=== PATIENT | female | born 1955 | race Caucasian/White ===

== ENCOUNTER 2018-06-03 06:02 | Day surgery (SDC) | END 2018-06-03 10:40 | disposition home or self-care (01) ==

== ENCOUNTER 2018-08-05 08:42 | Inpatient (IN) | payer OTHER ==
[2018-08-05] VITALS (27 sets, daily range): BP systolic 91–142; BP diastolic 43–99; PULSE 60–82; RESP 17–21; Ht 149.9 cm; Wt 61.2 kg
[~2018-08-05] VITALS: Ht 149.9 cm; Wt 61.2 kg
[~2018-08-05 08:42] MED LIST: AMPICILLIN/SULB 3 GM/NS (PMX) 100 ML IVPB ONE; LIPITOR; SEVOFLURANE 15 MIN ONE; SOD CHLORIDE 0.9% 1,000 ML IV SCH; VITAMINS
[2018-08-05] MEDS ORDERED: OMEG-135 PO (09:32)
[2018-08-05] MEDS ORDERED: ATOR10TA65 PO (09:32)
[2018-08-05] MEDS ORDERED: NEOSTIGMINE 10 MG INJ ONE (09:43)
[2018-08-05] MEDS ORDERED: PROPOFOL 20 ML ONE (09:43)
[2018-08-05] MEDS ORDERED: SUCCINYLCHOLINE CHLORIDE 100 MG/5 ML SYG IV ONE (09:43)
[2018-08-05] MEDS ORDERED: LIDOCAINE 100 MG SYRINGE ONE (09:43)
[2018-08-05] MEDS ORDERED: MIDAZOLAM 1 MG/ML 2 ML INJ ONE (09:43)
[2018-08-05] MEDS ORDERED: GLYCOPYRROLATE 0.4 MG INJ ONE (09:43)
[2018-08-05] MEDS ORDERED: ROCURONIUM 50 MG INJ ONE ×2 (09:43→13:00)
[2018-08-05] MEDS ORDERED: PHENYLephrine (100 MCG/ML) 10ML SYG ONE (09:44)
[2018-08-05] MEDS ORDERED: METOCLOPRAMIDE 10 MG INJ ONE (09:44)
[2018-08-05] MEDS ORDERED: KETOROLAC 30 MG INJ ONE (09:44)
[2018-08-05] MEDS ORDERED: ONDANSETRON 4 MG INJ ONE (09:44)
--- NOTE | 2018-08-05 11:45 | PREAC ---
Date/Time of Note Date/Time of Note DATE: 08/05/18 TIME: 11:34 Anesthesia Eval and Record Evaluation Time Pre-Procedure Interview DATE: 08/05/18 TIME: 11:34 Age 62 Sex female NPO: 8 hrs Preoperative diagnosis Rectal CA Planned procedure Lower anterior resection, possible abdominal, peritoneal resection, anterior layout man repair, possible colostomy, possible ileostomy Past Medical History Past Medical History: Includes Cardio: Dyslipidemia, Other (varicoses LEs) Surgery & Anesthesia Issues No known issue Meds Anticoagulation: No Beta Nettie within 24 hr: Yes Reported Medications Berwind-3 Fatty Acids/Fish Oil (Fish Oil 1,000 mg Capsule) 1 Each Capsule, 1 EACH PO DAILY, CAP 08/05/18 Atorvastatin Calcium (Atorvastatin Calcium) 10 Mg Tablet, 10 MG PO QHS, #30 TAB 08/05/18 Discontinued Reported Medications [Vitamins] No Conflict Check 06/03/18 [Lipitor] No Conflict Check 06/03/18 Current Medications Sodium Chloride 1,000 ml @ 75 mls/hr [id number] IV ; Start 08/05/18 at 08:00; Stop 08/05/18 at 21:19 Meds reviewed: Yes Allergies Coded Allergies: No Known Allergy (Unverified , 08/05/18) Allergies Reviewed: Yes Labs/Studies Labs Reviewed: Reviewed by anesthesiologist test: N/A Studies: ECG, CXR Pre-procedure Exam Last vitals Vital Signs Date Temp Pulse Resp B/P (MAP) Pulse Ox O2 O2 Flow FiO2 Time Delivery Rate 08/05/18 98.1 81 18 142/71 98 Room Air 09:57 (94) Airway: Adequate mouth opening, Adequate thyromental dist Mallampati: Mallampati I Teeth: Abnormal (edent) Lung: Normal Heart: Normal ASA Physical Status ASA physical status: 3 Emergency: None Planned Anesthetic General/MAC: ETT, NG/OG Tube Planned Pain Management Parenteral pain med Pre-operative Attestations Prior to commencing anesthesia and surgery, the patient was re-evaluated, there was verification of: *The patient's identity *The results of appropriate recent lab work and preoperative vital signs *The above evaluation not changing prior to induction *Anesthetic plan, risk benefits, alternative and complications discussed with patient/family; questions answered; patient/family understands, accepts and wishes to proceed. Allergy And Immunology Chief used Morenita Friedman Aug 05, 2018 11:44
[2018-08-05] MEDS ORDERED: hydrALAzine 20 MG INJ IV PRN (12:00)
[2018-08-05] MEDS ORDERED: ALBUTEROL 0.083% (NEB) 2.5 MG/3 ML AMP HHN PRN (12:00)
[2018-08-05] MEDS ORDERED: MEPERIDINE 25 MG INJ IV PRN (12:00)
[2018-08-05] MEDS ORDERED: ONDANSETRON 4 MG INJ IV PRN ×2 (12:00→15:00)
[2018-08-05] MEDS ORDERED: KETOROLAC 30 MG INJ IV PRN (12:00)
[2018-08-05] MEDS ORDERED: OXYCODONE/ACETAMINOPHEN (5/325) TAB PO PRN (12:00)
[2018-08-05] MEDS ORDERED: LABETALOL HCL 20MG INJ IV PRN (12:00)
[2018-08-05] MEDS ORDERED: METOCLOPRAMIDE 10 MG INJ IV PRN (12:00)
[2018-08-05] MEDS ORDERED: morphine (1 MG/ML) 10ML SYRINGE IV PRN (12:00)
[2018-08-05] MEDS ORDERED: HYDROmorphONE 1 MG/5 ML IV SYRINGE IV PRN (12:00)
[2018-08-05] MEDS ORDERED: DIPHENHYDRAMINE 50 MG INJ IV PRN (12:00)
[2018-08-05] MEDS ORDERED: FENTAnyl 50 MCG/ML VIAL IV PRN (12:00)
[2018-08-05] MEDS ORDERED: EPHEDrine 50 MG INJ ONE (12:13)
[2018-08-05] MEDS ORDERED: METOPROLOL 5 MG INJ ONE (12:13)
--- NOTE | 2018-08-05 14:44 | SIPON ---
Date/Time of Note Date/Time of Note DATE: 08/05/18 TIME: 14:43 Operative Report Preoperative Diagnosis Rectal cancer Postoperative Diagnosis Same Operation/Procedure Performed Low anterior resection with mobilization of the splenic flexure and rigid sigmoidoscopy Surgeon see signature line assistant district attorney Dr Rodas Anesthesia: general Estimated blood loss: 150 - 200 ml's Transfusion Required none Specimen Rectosigmoid colon specimen Grafts/Implants none Complications none ARINA SOLANO MD Aug 05, 2018 14:44
[2018-08-05] MEDS ORDERED: ACETAMINOPHEN 1000MG/100ML IV 100 ML IVPB PRN (15:00)
--- NOTE | 2018-08-05 15:02 | OPR ---
DATE OF OPERATION: 08/05/2018 PREOPERATIVE DIAGNOSIS: Rectal cancer. POSTOPERATIVE DIAGNOSIS: Rectal cancer. OPERATIONS PERFORMED: 1. Exploratory laparotomy and low anterior resection. 2. Mobilization of the splenic flexure. 3. Rigid sigmoidoscopy. INDICATIONS FOR PROCEDURE: The patient is an unfortunate 62-year-old female who presented with recta l bleeding. She underwent colonoscopy and was found to have a large rectal cancer at approximately 1 2 cm from the anal verge. Due to its location, she was not a candidate for neoadjuvant chemotherapy and radiation. She was counseled as to the benefit of surgery. She consented and was scheduled for surgery. DESCRIPTION OF PROCEDURE: The patient was brought to the operating theater, placed under general end otracheal tube anesthesia. Marin catheter was placed and she was then placed into the lithotomy posi tion. The abdomen was prepped and draped in the usual sterile fashion. Generous midline incision wa s made from a point approximately 5 cm above the umbilicus, around the umbilicus down to the symphysi s pubis. Subcutaneous tissue was dissected with cautery down to the anterior rectus sheath. The wendy ea alba was incised and the abdominal wall fascia was opened to allow entry into the abdomen. The fa scia was then incised to the length of the skin incision. The Bookwalter retractor was placed. Exce llent exposure was obtained. Initial inspection of the abdominal cavity did not reveal evidence of p eritoneal carcinomatosis or solid organ metastases to the liver or other organs. The Bookwalter retr actor was then placed and excellent exposure was obtained. The tumor was palpated low within the pel vis. The left colon was then mobilized by incising the white line of Toldt. A suitable point of tra nsection of the rectum proximal to the tumor was identified, cleared of its mesentery and the bowel w as transected with the LAURA stapler. Dissection in the mesorectal space then took place with combinat ion of cautery and the LigaSure device. The left and right ureters were identified and kept out of h arm's way. The dissection continued until a point approximately 3 or 4 cm below the palpable tumor a nd the intervening mesentery was transected with the LigaSure device with full mobilization of the tu mor and margin around the tumor, the rectum was then transected with the contour stapler. Specimen w as removed, oriented and sent for gross analysis of margins which were performed by attending patholo gist, Dr. Macedo. Margins were widely clear. The pelvis was irrigated. Minimal bleeding was contro lled with cautery. Preparation for reanastomosis then took place. The descending and sigmoid colon were further mobilized. The proximal staple line was then transected with cautery and a #21 anvil wa s placed into the colon after first placing a 2-0 Prolene pursestring suture. The anvil was secured in place in the standard fashion. Dr. Castaneda then went down below while Dr. Rodas as stated above, a n anastomosis was created using the #29 EEA stapler. At this point, the proximal and distal donuts o f colon tissue were inspected and found to be intact. The pelvis was then filled with warm saline an d rigid sigmoidoscopy was performed. There was no evidence of leak upon insufflation and the staple line appeared viable. The rigid sigmoidoscope was then removed and the abdomen was irrigated. Decis ion was made to place a #10 flat Austin-Manzano drain in the prerectal space. This was done in standa rd fashion, brought through the right lower abdomen and secured in place with 2-0 nylon in the standa rd fashion. At this point, lap, sponge and instrument counts were correct. The abdomen was then rosmery sed with #1 looped PDS sutures and the skin incision was irrigated and reapproximated with skin stapl es. At the conclusion of the operation, the scrub nurse requested an x-ray due to the fact that she had question about a possible needle. X-ray was performed. There was no evidence of a needle identi fied and no other foreign bodies except for the JESSICA drain. Sterile dressing was then applied. The pa tient tolerated the procedure well. The total blood loss was approximately 200 mL. There were no co mplications and the patient was transported in stable condition to the recovery room. Dictated By: ARINA KENNEY/SKY Conf#: [id number] DID#: [id number]
[2018-08-05] MEDS: morphine 1 MG/ML 30 ML (PCA) IV SCH (15:14)
--- NOTE | 2018-08-05 17:23 | PAC ---
Date/Time of Note Date/Time of Note DATE: 08/05/18 TIME: 17:22 Post-Anesthesia Notes Post-Anesthesia Note Last documented vital signs Vital Signs Date Temp Pulse Resp B/P (MAP) Pulse Ox O2 O2 Flow FiO2 Time Delivery Rate 08/05/18 68 19 116/52 100 Nasal 2.0 16:37 (73) Cannula 08/05/18 99.3 15:03 Activity: WNL Respiratory function: WNL Cardiovascular function: WNL Mental status: Baseline Pain reasonably controlled: Yes Hydration appropriate: Yes Nausea/Vomiting absent: Yes Comments hr 68 BP 116/52 Sat 100 on 2NC RR 19 Patient doing well, ready for floor. Morenita Friedman Aug 05, 2018 17:23
[2018-08-05] MEDS: D5W-0.45 NACL + KCL 20 MEQ 1,000 ML IV SCH ×2 (18:09→22:44)
[2018-08-06] VITALS: BP 97/50; PULSE 79; RESP 18
--- NOTE | 2018-08-06 01:57 | HP ---
DATE OF ADMISSION: 08/05/2018 CHIEF COMPLAINT AND HISTORY OF PRESENT ILLNESS: The patient is a 62-year-old female with no signific ant past medical history, underwent elective colonoscopy by Dr. Morelos and was found to have a large tumor in the sigmoid colon at 15 cm from the anus, also was noted to have hemorrhoids. Biopsy subse quently came back positive for invasive adenocarcinoma, moderately differentiated. The patient was r eferred to Dr. Solano. The patient was brought into hospital today and underwent an exploratory lapar otomy and low anterior resection. The patient postoperatively had significant pain and is admitted f or further evaluation and management. NG tube has been placed postoperatively and the patient will b e kept n.p.o. The patient denies any chest pain. No reported leg edema. No reported resting leg pa in. No reported weakness or numbness, tingling in any extremity. The patient remains awake, alert a nd responsive. REVIEW OF SYSTEMS: Other than postoperative pain, rest of review of systems unremarkable. PAST MEDICAL HISTORY: As stated above. PAST SURGICAL HISTORY: The patient is status post hysterectomy. SOCIAL HISTORY: No smoking, no alcohol. ALLERGIES: NONE. FAMILY HISTORY: The patient's brother has rectal cancer and also another brother had oral cancer, mo ther with breast cancer. PHYSICAL EXAMINATION: GENERAL: Revealed the patient to be awake, alert, fairly oriented. VITAL SIGNS: Temperature 98, pulse 80, respiration 20, blood pressure 130/60, O2 saturation 95% on 2 liters cannula. HEENT: No eye discharge or redness. Conjunctivae and lids are normal. Nose and ears are normal. NECK: No mass. CHEST: Fairly clear. CARDIOVASCULAR: S1, S2 are normal. No murmur. ABDOMEN: The patient is status post surgery. EXTREMITIES: No leg edema. Pedal pulses are palpable. SKIN: Without acute rashes. NEUROLOGIC: The patient is awake, alert, fairly oriented with no gross focal deficit. IMPRESSION: Rectal cancer status post exploratory laparotomy and low anterior resection. PLAN: The patient will be admitted on med/surg. The patient will be kept n.p.o. and have NG to low suction. The patient will be started on IV fluids, IV Zofran for nausea, vomiting, IV morphine for p ain. The patient will have SCD for DVT prophylaxis. We will have followup labs tomorrow including C BC, BMP, magnesium and phosphorus. Plan of care was discussed with patient's family. The patient is hemodynamically stable. Dictated By: DOTTIE VELÁSQUEZ/SKY Conf#: [id number] DID#: [id number] CC: ARINA SOLANO MD;*EndCC*
[2018-08-06 05:33] VITALS: BP 104/53; PULSE 76; RESP 17
[2018-08-06] MEDS: D5W-0.45 NACL + KCL 20 MEQ 1,000 ML IV SCH ×3 (06:09→18:15)
[2018-08-06] MEDS: morphine 1 MG/ML 30 ML (PCA) IV SCH (07:04)
[2018-08-06] MEDS ORDERED: VITAMIN A & D 5 GM OINT PACKET TOP ONE (07:43)
[2018-08-06 07:45] VITALS: BP 101/51; PULSE 79; RESP 18
--- NOTE | 2018-08-06 10:52 | PN ---
Date/Time of Note Date/Time of Note DATE: 08/06/18 TIME: 10:52 Assessment/Plan VTE Prophylaxis Risk score (from Ns)>0 risk: 2 SCD applied (from Nsg): Yes Lines/Catheters IV Catheter Type (from Nrs): Peripheral IV Urinary Cath still in place: Yes Reason Cath still needed: urinary retention Assessment/Plan Assessment/Plan Rectal cancer status post exploratory laparotomy and low anterior resection. Result Diagram: 08/06/1844 Results 24hrs Laboratory Tests Test 08/06/18 07:10 08/06/18 09:44 Lab Scanned Report REFERENCE LAB White Blood Count 8.4 Red Blood Count 3.61 L Hemoglobin 10.4 L Hematocrit 32.2 L Mean Corpuscular Volume 89.2 Mean Corpuscular Hemoglobin 28.8 L Mean Corpuscular Hemoglobin Concent 32.3 Red Cell Distribution Width 13.0 Platelet Count 247 Mean Platelet Volume 10.2 Immature Granulocytes % 0.400 Neutrophils % 56.7 Lymphocytes % 31.3 Monocytes % 10.6 Eosinophils % 0.6 Basophils % 0.4 Nucleated Red Blood Cells % 0.0 Immature Granulocytes # 0.030 Neutrophils # 4.8 Lymphocytes # 2.6 Monocytes # 0.9 Eosinophils # 0.1 Basophils # 0.0 Nucleated Red Blood Cells # 0.0 Exam/Review of Systems Exam Vitals Vital Signs Date Temp Pulse Resp B/P (MAP) Pulse Ox O2 O2 Flow FiO2 Time Delivery Rate 08/06/18 99.7 79 18 101/51 99 Nasal 07:45 (68) Cannula 08/06/18 2.0 05:33 Intake and Output 08/05/18 08/05/18 08/06/18 1515:00 23:00 07:00 IntakeIntake Total 1400 ml 100 ml 1050 ml OutputOutput Total 650 ml 890 ml 820 ml BalanceBalance 750 ml -790 ml 230 ml Results Results 24hrs Laboratory Tests Test 08/06/18 07:10 08/06/18 09:44 Lab Scanned Report REFERENCE LAB White Blood Count 8.4 Red Blood Count 3.61 L Hemoglobin 10.4 L Hematocrit 32.2 L Mean Corpuscular Volume 89.2 Mean Corpuscular Hemoglobin 28.8 L Mean Corpuscular Hemoglobin Concent 32.3 Red Cell Distribution Width 13.0 Platelet Count 247 Mean Platelet Volume 10.2 Immature Granulocytes % 0.400 Neutrophils % 56.7 Lymphocytes % 31.3 Monocytes % 10.6 Eosinophils % 0.6 Basophils % 0.4 Nucleated Red Blood Cells % 0.0 Immature Granulocytes # 0.030 Neutrophils # 4.8 Lymphocytes # 2.6 Monocytes # 0.9 Eosinophils # 0.1 Basophils # 0.0 Nucleated Red Blood Cells # 0.0 Medications Medication Current Medications Ondansetron HCl (Zofran Inj) 4 mg Q6H PRN IV NAUSEA AND/OR VOMITING; Start 08/05/18 at 15:00 Morphine Sulfate (morphine) 2 MG DOSE 15 ... Q4PCA IV Last administered on 08/06/18at 07:04; Admin Dose 30 MG; Start 08/05/18 at 15:00 Potassium Chloride/Dextrose/ Sod Cl 1,000 ml @ 125 mls/hr Q8H IV Last administered on 08/06/18at 06:09; Admin Dose 125 MLS/HR; Start 08/05/18 at 14:44 Acetaminophen 100 ml @ 400 mls/hr Q6H PRN IVPB PAIN Last administered on 08/05/18at 18:08; Admin Dose 400 MLS/HR; Start 08/05/18 at 15:00; Stop 08/06/18 at 14:59 Piperacillin Sod/ Tazobactam Sod 100 ml @ 200 mls/hr Q6 IVPB ; Start 08/06/18 at 11:00 SHENA GARCIA Aug 06, 2018 10:52
[2018-08-06] MEDS: PIPER-TAZO 3.375 GM IV (PMX) 100 ML IVPB SCH ×3 (11:38→23:15)
[2018-08-06 15:05] VITALS: BP 105/51; PULSE 74; RESP 18
[2018-08-06 20:10] VITALS: BP 115/58; PULSE 87; RESP 18
--- NOTE | 2018-08-06 20:40 | PN ---
DATE: 08/06/2018 Postop day #1 status post laparotomy, rectosigmoid resection, and low anterior resection and anastomo sis. SUBJECTIVE: No new events. No specific complaint. The pain has been under control with morphine PC A. OBJECTIVE: GENERAL: Awake, alert, oriented. VITAL SIGNS: Temperature maximum today 99.7, heart rate 79 at maximum, respiration 18, blood pressur e 105/51, saturation 93% and also 98% in two occasions on 2 liters of nasal cannula. HEART: Regular. LUNGS: Clear. Decreased breathing sound at bases. ABDOMEN: Not distended, relatively soft. Bowel sounds hypoactive. EXTREMITIES: Legs no calf tenderness. No pitting edema. SCDs in place. NG tube is in place and connected to intermittent suction draining bilious fluid. Lo wer extremity SCDs in place. Also, patient has a Marin which in past 12 hours has drained 700 mL of urine. LABORATORIES: PT and PTT within normal limits. Chemistry: Sodium, potassium, BUN, creatinine amanuel l. Hematology: WBC 8400 with 56% segmented. Hemoglobin 10.4, hematocrit 32.2. ASSESSMENT: Postop day #1. The patient as a whole is stable. PLAN: 1. Continue NG tube. 2. Continue Marin catheter. 3. Continue STACK MATCHER. 4. Encourage incentive spirometry. 5. Keep SCDs in place. 6. Get the patient out of bed and be in a chair if possible today and if not, then tomorrow. To hav e her walk around. We will continue to monitor the patient's intake and output. Blood tests tomorro w and the days to follow. Also, antibiotic was added to the patient's medication list. Dictated By: JAS EDGAR MD PS/NTS Conf#: [id number] DID#: [id number] CC: ARINA SOLANO MD;*EndCC*
--- NOTE | 2018-08-06 22:03 | CONS ---
DATE OF ADMISSION: 08/05/2018 DATE OF CONSULTATION: 08/06/2018 REASON FOR EVALUATION: Colon cancer. HISTORY OF PRESENT ILLNESS: This is a 62-year-old female with no significant past medical h istory other than prediabetes, admitted to [facility] after being diagnosed with co lorectal carcinoma 12 to 15 cm from anal verge. Colonoscopy proved colorectal mass and biopsy adenoc arcinoma. The patient underwent surgery, left anterior resection, by Dr. Naveen Solano with end-to-en d anastomosis. Currently doing well, recovering from surgery. On postoperative day 1, no pain, no b leeding, no hematemesis, no melena. NG tube intact. No chest pain, no shortness of breath, no heada ches, no blurred vision. PAST MEDICAL HISTORY: Positive only for prediabetes. SOCIAL HISTORY: Does not smoke. Does not drink. . Has 3 sons, 1 daughter. FAMILY HISTORY: Positive for cancer. Mother from stomach cancer. Brother had rectal cancer, p ost surgery, doing well at this time. MEDICATIONS: Per EMR. LABORATORY DATA: Per EMR. PHYSICAL EXAMINATION: VITAL SIGNS: Temperature 97, respiration of 18, pulse of 82, BP 125/75. LYMPH NODES: No supraclavicular nodes. No axillary nodes. LUNGS: Clear. HEART: Normal S1, S2. ABDOMEN: Soft. Operative wounds clean. NG tube in place. ASSESSMENT AND PLAN: 1. This is a 62-year-old female with diagnosis of colorectal carcinoma above the peritoneal reflection adenocarcinoma. 2. The patient underwent surgical resection, anterior resection with end-to-end anastomosis, Dr. Ramirez is. 3. For now, postoperative care. 4. Continue pain management; anti-nausea medications; fluid, electrolyte balance. 5. Keep hemoglobin above 9, hematocrit above 27. 6. Later, wait for pathology pending at this time. 7. Later, oncological treatment as outpatient for staging, grading. 8. Imaging studies: CT chest, abdomen and pelvis will be ordered to evaluate the extent of the dise ase and to rule out metastatic disease. Dictated By: TRUE VILLALBA/SKY Conf#: [id number] DID#: [id number] CC: NAVEEN SOLANO MD;*EndCC*
[2018-08-07 02:20] VITALS: BP 130/61; PULSE 86; RESP 18
[2018-08-07] MEDS: PIPER-TAZO 3.375 GM IV (PMX) 100 ML IVPB SCH ×4 (05:28→23:43)
[2018-08-07] MEDS: D5W-0.45 NACL + KCL 20 MEQ 1,000 ML IV SCH ×4 (05:31→22:44)
[2018-08-07] MEDS: morphine 1 MG/ML 30 ML (PCA) IV SCH (05:45)
[2018-08-07 07:45] VITALS: BP 107/58; PULSE 65; RESP 17
--- NOTE | 2018-08-07 11:50 | PN ---
Date/Time of Note Date/Time of Note DATE: 08/07/18 TIME: 11:49 Assessment/Plan VTE Prophylaxis Risk score (from Ns)>0 risk: 7 SCD applied (from Ns): Yes Pharmacological prophylaxis: LMWH Lines/Catheters IV Catheter Type (from [facility]): Peripheral IV Urinary Cath still in place: Yes Reason Cath still needed: skin wounds contaminated by urine Assessment/Plan Hospital Course 1) Rectal cancer status post exploratory laparotomy and low anterior resection. - continue post operative care - monitor clinically Result Diagram: 08/07/18 0824 08/07/18 0824 Results 24hrs Laboratory Tests Test 08/07/18 08:24 White Blood Count 9.1 Red Blood Count 3.80 L Hemoglobin 10.8 L Hematocrit 33.9 L Mean Corpuscular Volume 89.2 Mean Corpuscular Hemoglobin 28.4 L Mean Corpuscular Hemoglobin Concent 31.9 L Red Cell Distribution Width 12.7 Platelet Count 245 Mean Platelet Volume 9.7 Immature Granulocytes % 0.200 Neutrophils % 61.4 Lymphocytes % 25.9 Monocytes % 11.0 Eosinophils % 1.1 Basophils % 0.4 Nucleated Red Blood Cells % 0.0 Immature Granulocytes # 0.020 Neutrophils # 5.6 Lymphocytes # 2.3 Monocytes # 1.0 H Eosinophils # 0.1 Basophils # 0.0 Nucleated Red Blood Cells # 0.0 Prothrombin Time 14.6 Prothrombin Time Ratio 1.1 INR International Normalized Ratio 1.13 Activated Partial Thromboplast Time 29.7 Sodium Level 134 L Potassium Level 4.8 Chloride Level 101 Carbon Dioxide Level 31 Anion Gap 2 L Blood Urea Nitrogen 6 L Creatinine 0.78 Est Glomerular Filtrat Rate mL/min > 60 Glucose Level 123 Calcium Level 8.4 Phosphorus Level 3.1 Magnesium Level 1.8 Subjective 24 Hr Interval Summary Free Text/Dictation Patient still have a fair amount of abdominal pain Exam/Review of Systems Exam Vitals Vital Signs Date Temp Pulse Resp B/P (MAP) Pulse Ox O2 O2 Flow FiO2 Time Delivery Rate 08/07/18 98.9 65 17 107/58 94 07:45 (74) 08/06/18 Nasal 2.0 20:00 Cannula Intake and Output 08/06/18 08/06/18 08/07/18 1515:00 23:00 07:00 IntakeIntake Total 100 ml 1100 ml 1200 ml OutputOutput Total 600 ml 1240 ml BalanceBalance 100 ml 500 ml -40 ml Constitutional: well developed Head: normocephalic, atraumatic Neck: supple Respiratory: diminished breath sounds Cardiovascular: regular rate and rhythm Gastrointestinal: soft, non-tender Extremities: normal pulses Results Results 24hrs Laboratory Tests Test 08/07/18 08:24 White Blood Count 9.1 Red Blood Count 3.80 L Hemoglobin 10.8 L Hematocrit 33.9 L Mean Corpuscular Volume 89.2 Mean Corpuscular Hemoglobin 28.4 L Mean Corpuscular Hemoglobin Concent 31.9 L Red Cell Distribution Width 12.7 Platelet Count 245 Mean Platelet Volume 9.7 Immature Granulocytes % 0.200 Neutrophils % 61.4 Lymphocytes % 25.9 Monocytes % 11.0 Eosinophils % 1.1 Basophils % 0.4 Nucleated Red Blood Cells % 0.0 Immature Granulocytes # 0.020 Neutrophils # 5.6 Lymphocytes # 2.3 Monocytes # 1.0 H Eosinophils # 0.1 Basophils # 0.0 Nucleated Red Blood Cells # 0.0 Prothrombin Time 14.6 Prothrombin Time Ratio 1.1 INR International Normalized Ratio 1.13 Activated Partial Thromboplast Time 29.7 Sodium Level 134 L Potassium Level 4.8 Chloride Level 101 Carbon Dioxide Level 31 Anion Gap 2 L Blood Urea Nitrogen 6 L Creatinine 0.78 Est Glomerular Filtrat Rate mL/min > 60 Glucose Level 123 Calcium Level 8.4 Phosphorus Level 3.1 Magnesium Level 1.8 Medications Medication Current Medications Ondansetron HCl (Zofran Inj) 4 mg Q6H PRN IV NAUSEA AND/OR VOMITING; Start 08/05/18 at 15:00 Morphine Sulfate (morphine) 2 MG DOSE 15 ... Q4PCA IV Last administered on 08/07/18at 05:45; Admin Dose 30 MG; Start 08/05/18 at 15:00 Potassium Chloride/Dextrose/ Sod Cl 1,000 ml @ 125 mls/hr Q8H IV Last administered on 08/07/18at 05:31; Admin Dose 125 MLS/HR; Start 08/05/18 at 14:44 Piperacillin Sod/ Tazobactam Sod 100 ml @ 200 mls/hr Q6 IVPB Last administered on 08/07/18at 05:28; Admin Dose 200 MLS/HR; Start 08/06/18 at 11:00 JOSÉ BADILLO Aug 07, 2018 11:50
[2018-08-07 15:33] VITALS: BP 134/60; PULSE 86; RESP 19
[2018-08-07 20:14] VITALS: BP 124/64; PULSE 82; RESP 20
[2018-08-07 23:52] VITALS: BP 130/64; PULSE 86; RESP 20
[2018-08-08] MEDS: D5W-0.45 NACL + KCL 20 MEQ 1,000 ML IV SCH ×3 (03:21→23:12)
[2018-08-08 04:30] VITALS: BP 127/62; PULSE 78; RESP 17
[2018-08-08] MEDS: PIPER-TAZO 3.375 GM IV (PMX) 100 ML IVPB SCH ×4 (06:11→23:12)
[2018-08-08 07:41] VITALS: BP 123/61; PULSE 73; RESP 19
--- NOTE | 2018-08-08 11:53 | PN ---
Date/Time of Note Date/Time of Note DATE: 08/08/18 TIME: 11:53 Assessment/Plan VTE Prophylaxis Risk score (from Ns)>0 risk: 7 SCD applied (from Ns): Yes Pharmacological prophylaxis: LMWH Lines/Catheters IV Catheter Type (from [facility]): Peripheral IV Urinary Cath still in place: Yes Reason Cath still needed: skin wounds contaminated by urine Assessment/Plan Hospital Course 1) Rectal cancer status post exploratory laparotomy and low anterior resection. - continue post operative care - monitor clinically Result Diagram: 08/08/18 0836 08/08/18 0836 Results 24hrs Laboratory Tests Test 08/08/18 08:35 08/08/18 08:36 Prothrombin Time 14.1 Prothrombin Time Ratio 1.1 INR International Normalized Ratio 1.08 Activated Partial Thromboplast Time 28.6 White Blood Count 6.8 # Red Blood Count 4.02 L Hemoglobin 11.4 L Hematocrit 35.0 L Mean Corpuscular Volume 87.1 Mean Corpuscular Hemoglobin 28.4 L Mean Corpuscular Hemoglobin Concent 32.6 Red Cell Distribution Width 12.4 Platelet Count 266 Mean Platelet Volume 9.6 Immature Granulocytes % 0.300 Neutrophils % 59.6 Lymphocytes % 26.3 Monocytes % 9.3 Eosinophils % 3.8 Basophils % 0.7 Nucleated Red Blood Cells % 0.0 Immature Granulocytes # 0.020 Neutrophils # 4.1 Lymphocytes # 1.8 Monocytes # 0.6 Eosinophils # 0.3 Basophils # 0.1 Nucleated Red Blood Cells # 0.0 Sodium Level 138 Potassium Level 4.0 Chloride Level 105 Carbon Dioxide Level 29 Anion Gap 4 L Blood Urea Nitrogen 4 L Creatinine 0.59 Est Glomerular Filtrat Rate mL/min > 60 Glucose Level 139 Calcium Level 8.5 Phosphorus Level 2.7 Magnesium Level 1.9 Subjective 24 Hr Interval Summary Free Text/Dictation Patient still has abdominal pain, was out of bed yesterday but not today Exam/Review of Systems Exam Vitals Vital Signs Date Temp Pulse Resp B/P (MAP) Pulse Ox O2 O2 Flow FiO2 Time Delivery Rate 08/08/18 16 09:00 08/08/18 98.8 73 123/61 97 07:41 (81) 08/08/18 Room Air 04:30 08/06/18 2.0 20:00 Intake and Output 08/07/18 08/07/18 08/08/18 1515:00 23:00 07:00 IntakeIntake Total 100 ml 1100 ml 1225 ml OutputOutput Total 1600 ml 490 ml 1590 ml BalanceBalance -1500 ml 610 ml -365 ml Constitutional: well developed Head: normocephalic, atraumatic Neck: supple Respiratory: diminished breath sounds Cardiovascular: regular rate and rhythm Gastrointestinal: soft, non-tender Extremities: normal pulses Results Results 24hrs Laboratory Tests Test 08/08/18 08:35 08/08/18 08:36 Prothrombin Time 14.1 Prothrombin Time Ratio 1.1 INR International Normalized Ratio 1.08 Activated Partial Thromboplast Time 28.6 White Blood Count 6.8 # Red Blood Count 4.02 L Hemoglobin 11.4 L Hematocrit 35.0 L Mean Corpuscular Volume 87.1 Mean Corpuscular Hemoglobin 28.4 L Mean Corpuscular Hemoglobin Concent 32.6 Red Cell Distribution Width 12.4 Platelet Count 266 Mean Platelet Volume 9.6 Immature Granulocytes % 0.300 Neutrophils % 59.6 Lymphocytes % 26.3 Monocytes % 9.3 Eosinophils % 3.8 Basophils % 0.7 Nucleated Red Blood Cells % 0.0 Immature Granulocytes # 0.020 Neutrophils # 4.1 Lymphocytes # 1.8 Monocytes # 0.6 Eosinophils # 0.3 Basophils # 0.1 Nucleated Red Blood Cells # 0.0 Sodium Level 138 Potassium Level 4.0 Chloride Level 105 Carbon Dioxide Level 29 Anion Gap 4 L Blood Urea Nitrogen 4 L Creatinine 0.59 Est Glomerular Filtrat Rate mL/min > 60 Glucose Level 139 Calcium Level 8.5 Phosphorus Level 2.7 Magnesium Level 1.9 Medications Medication Current Medications Ondansetron HCl (Zofran Inj) 4 mg Q6H PRN IV NAUSEA AND/OR VOMITING; Start 08/05/18 at 15:00 Morphine Sulfate (morphine) 2 MG DOSE 15 ... Q4PCA IV Last administered on 08/07/18at 05:45; Admin Dose 30 MG; Start 08/05/18 at 15:00 Potassium Chloride/Dextrose/ Sod Cl 1,000 ml @ 125 mls/hr Q8H IV Last a dministered on 08/08/18at 03:21; Admin Dose 125 MLS/HR; Start 08/05/18 at 14:44 Piperacillin Sod/ Tazobactam Sod 100 ml @ 200 mls/hr Q6 IVPB Last administered on 08/08/18at 06:11; Admin Dose 200 MLS/HR; Start 08/06/18 at 11:00 JOSÉ BADILLO Aug 08, 2018 11:53
[2018-08-08 14:14] VITALS: BP 141/63; PULSE 77; RESP 18
[2018-08-08] MEDS ORDERED: VITAMIN A & D 5 GM OINT PACKET TOP ONE (14:17)
[2018-08-08 19:25] VITALS: BP 129/61; PULSE 70; RESP 18
[2018-08-09 01:23] VITALS: BP 115/57; PULSE 75; RESP 16
[2018-08-09] MEDS: PIPER-TAZO 3.375 GM IV (PMX) 100 ML IVPB SCH ×3 (05:16→18:11)
[2018-08-09] MEDS: morphine 1 MG/ML 30 ML (PCA) IV SCH (06:02)
[2018-08-09] MEDS: D5W-0.45 NACL + KCL 20 MEQ 1,000 ML IV SCH ×3 (06:44→18:11)
[2018-08-09 08:10] VITALS: BP 130/70; PULSE 70; RESP 18
[2018-08-09 14:08] VITALS: BP 124/72; PULSE 76; RESP 18
--- NOTE | 2018-08-09 15:28 | PN ---
Date/Time of Note Date/Time of Note DATE: 08/09/18 TIME: 15:27 Assessment/Plan VTE Prophylaxis Risk score (from Nsg)>0 risk: 4 SCD applied (from Nsg): Yes Lines/Catheters IV Catheter Type (from Nrsg): Peripheral IV Urinary Cath still in place: Yes Reason Cath still needed: urinary retention Assessment/Plan Assessment/Plan Rectal cancer status post exploratory laparotomy and low anterior resection. - continue post operative care - monitor clinically Result Diagram: 08/08/1883508/08/1836 Exam/Review of Systems Exam Vitals Vital Signs Date Temp Pulse Resp B/P (MAP) Pulse Ox O2 O2 Flow FiO2 Time Delivery Rate 08/09/18 97.3 76 18 124/72 97 Room Air 14:08 (89) 08/06/18 2.0 20:00 Intake and Output 08/08/18 08/08/18 08/09/18 1414:59 22:59 06:59 IntakeIntake Total 200 ml 950 ml 1150 ml OutputOutput Total 2330 ml 815 ml 860 ml BalanceBalance -2130 ml 135 ml 290 ml Medications Medication Current Medications Ondansetron HCl (Zofran Inj) 4 mg Q6H PRN IV NAUSEA AND/OR VOMITING; Start 08/05/18 at 15:00 Morphine Sulfate (morphine) 2 MG DOSE 15 ... Q4PCA IV Last administered on 08/09/18at 06:02; Admin Dose 30 MG; Start 08/05/18 at 15:00 Potassium Chloride/Dextrose/ Sod Cl 1,000 ml @ 125 mls/hr Q8H IV Last admin istered on 08/09/18at 10:26; Admin Dose 125 MLS/HR; Start 08/05/18 at 14:44 Piperacillin Sod/ Tazobactam Sod 100 ml @ 200 mls/hr Q6 IVPB Last administered on 08/09/18at 12:10; Admin Dose 200 MLS/HR; Start 08/06/18 at 11:00 SHENA GARCIA Aug 09, 2018 15:28
--- NOTE | 2018-08-09 15:46 | PN ---
DATE: 08/05/2018 Postop day #4 status post laparotomy, low anterior resection of the rectosigmoid cancer. SUBJECTIVE: No specific complaint. Has not had any bowel movement or neither has passed any gas. OBJECTIVE: GENERAL: Awake, alert, oriented x3. VITAL SIGNS: Temperature maximum 99.1, heart rate 70, respiration 18, blood pressure 130/72, saturat ion 96%. No bowel movement, no flatus. LABORATORY DATA: NG tube drainage has been 250 mL in past 24 hours. Urine output past 24 hours 3200 mL. The patient has NG tube and has a Marin catheter. Has been out of bed, but not walking that mu ch yet. HEART: Regular. LUNGS: Clear. ABDOMEN: Soft. Wounds clean. Dressing changed. EXTREMITIES: Legs no calf tenderness. No pitting edema. SCDs on the legs. ASSESSMENT: The patient with cancer of rectosigmoid. Postop day #4, is quite stable. Bowel sounds actually is 3+/4+. Expecting at least passing gas pretty soon. PLAN: Continue current care. Keep the NG tube. Keep the Marin, make sure the patient gets out of b ed and walks around on the floor. Hopefully, by tomorrow, we can discontinue the Marin and the NG tu be. Dictated By: JAS EDGAR MD PS/NTS Conf#: [id number] DID#: [id number] CC: ARINA SOLANO MD;*EndCC*
[2018-08-09 20:17] VITALS: BP 129/76; PULSE 80; RESP 18
[2018-08-10] MEDS: PIPER-TAZO 3.375 GM IV (PMX) 100 ML IVPB SCH ×4 (00:29→17:29)
[2018-08-10 02:03] VITALS: BP 119/70; PULSE 72; RESP 18
[2018-08-10] MEDS: D5W-0.45 NACL + KCL 20 MEQ 1,000 ML IV SCH ×3 (03:45→14:11)
[2018-08-10 08:02] VITALS: BP 132/71; PULSE 74; RESP 18
[2018-08-10] MEDS ORDERED: morphine 2 MG INJ IV PRN (14:00)
[2018-08-10 15:03] VITALS: BP 128/59; PULSE 73; RESP 18
[2018-08-10 19:56] VITALS: BP 141/67; PULSE 76; RESP 18
--- NOTE | 2018-08-10 23:08 | PN ---
Date/Time of Note Date/Time of Note DATE: 08/10/18 TIME: 23:08 Assessment/Plan VTE Prophylaxis Risk score (from Nsg)>0 risk: 4 SCD applied (from Nsg): Yes Pharmacological prophylaxis: other Lines/Catheters IV Catheter Type (from Nrsg): Peripheral IV Urinary Cath still in place: Yes Assessment/Plan Result Diagram: 08/08/18 0836 08/08/18 0836 Exam/Review of Systems Exam Vitals Vital Signs Date Temp Pulse Resp B/P (MAP) Pulse Ox O2 O2 Flow FiO2 Time Delivery Rate 08/10/18 98.9 76 18 141/67 93 19:56 (91) 08/10/18 Room Air 15:03 08/06/18 2.0 20:00 Intake and Output 08/09/18 08/09/18 08/10/18 1414:59 22:59 06:59 IntakeIntake Total 700 ml 925 ml 1200 ml OutputOutput Total 35 ml 1100 ml 70 ml BalanceBalance 665 ml -175 ml 1130 ml Medications Medication Current Medications Ondansetron HCl (Zofran Inj) 4 mg Q6H PRN IV NAUSEA AND/OR VOMITING; Start 08/05/18 at 15:00 Potassium Chloride/Dextrose/ Sod Cl 1,000 ml @ 125 mls/hr Q8H IV Last administered on 08/10/18at 14:11; Admin Dose 125 MLS/HR; Start 08/05/18 at 14:44 Piperacillin Sod/ Tazobactam Sod 100 ml @ 200 mls/hr Q6 IVPB Last administered on 08/10/18at 17:29; Admin Dose 200 MLS/HR; Start 08/06/18 at 11:00 Morphine Sulfate (morphine) 2 mg Q4H PRN IV SEVERE PAIN LEVEL 7-10; Start 08/10/18 at 14:00 SHENA GARCIA Aug 10, 2018 23:08
[2018-08-11] MEDS: D5W-0.45 NACL + KCL 20 MEQ 1,000 ML IV SCH ×3 (00:10→21:10)
[2018-08-11] MEDS: PIPER-TAZO 3.375 GM IV (PMX) 100 ML IVPB SCH ×3 (00:20→12:35)
[2018-08-11 01:59] VITALS: BP 141/74; PULSE 67; RESP 18
--- NOTE | 2018-08-11 06:35 | PN ---
DATE: 08/10/2018 SUBJECTIVE: Postop day #5, status post laparotomy, low anterior resection of the rectosigmoid for cancer. No complaint. OBJECTIVE: VITAL SIGNS: Temperature 98.5, heart rate 74, respiration 18, blood pressure 172/75, saturation 93%. Austin-Manzano drain 105 Ml serosanguinous. NG tube drainage 250 mL, considering the patient is taking some ice chips, it is slightly greenish. No bowel movement, no passing flatus. HEART: Regular. LUNGS: Clear. ABDOMEN: Soft, bowel sounds present. Wound is clean. LABORATORY DATA: Sodium, potassium, BUN, and creatinine W.N.Range. Hematology: WBC 6800 with 89% segmented,. NG tube is in place. Marin catheter is in place. ASSESSMENT: The patient is a 62-year-old female status post low anterior resection of cancer of rectosigmoid. GENERAL: The patient is doing fine, stable leukocytosis, no fever, but has not had any bowel movement. Neither has passed any gas though the bowel sounds appears to be almost normal. PLAN: Continue current care out of bed and walk around clamp the NG tube as of midnight tonight. Initiate Marin catheter tomorrow morning. Dictated By: JAS EDGAR MD PS/NTS Conf#: [id number] DID#: [id number] MTDD
[2018-08-11 07:53] VITALS: BP 136/74; PULSE 72; RESP 18
[2018-08-11 14:58] VITALS: BP 157/68; PULSE 76; RESP 16
[2018-08-11] MEDS ORDERED: HYDROCODONE/APAP (5/325) TAB PO PRN (16:30)
[2018-08-11] MEDS ORDERED: ACETAMINOPHEN 500 MG TAB PO PRN (16:30)
--- NOTE | 2018-08-11 17:25 | PN ---
DATE: 08/11/2018 Postop day #6 status post laparotomy, low anterior resection for cancer of rectosigmoid. SUBJECTIVE: No complaint. The patient has had 3 bowel movements. No nausea, no vomiting. NG tube has been clamped since last night. The Marin has been discontinued today morning and the patient has urinated with no problem. OBJECTIVE: GENERAL: Alert, awake, oriented x3. VITAL SIGNS: Temperature 98, heart rate 67, respiration 19, blood pressure 141/74, saturation 95% ro om air. HEART: Regular. LUNGS: Clear. ABDOMEN: Soft. Wound is clean. Bowel sounds are present. EXTREMITIES: Legs have no calf tenderness. LABORATORY DATA: WBC 6800 with 54% segmented, hemoglobin 11.4, stable. Electrolytes: Sodium, potas sium, BUN, creatinine are within normal limits. ASSESSMENT AND PLAN: Postop day #6 status post low anterior resection of the cancer of colon - rectu m. The patient is stable. GI system has started functioning and has had bowel movement. PLAN: Discontinue NG tube and I did start the patient on clear liquids as of tonight and I will adva nce it tomorrow if the patient tolerates. Dictated By: JAS EDGAR MD PS/NTS Conf#: [id number] DID#: [id number] CC: ARINA SOLANO MD; DOTTIE FONSECA MD;*EndCC*
[2018-08-11 20:30] VITALS: BP 127/72; PULSE 67; RESP 19
--- NOTE | 2018-08-11 21:48 | PN ---
DATE: 08/11/2018 SUBJECTIVE: Followup on CA of colon status post surgery. The patient is tolerating clear liquid t after NG was removed. The patient denies any chest pain or shortness of breath. No reported fever or chills. PHYSICAL EXAMINATION: GENERAL: The patient is awake and alert. VITAL SIGNS: Temperature 98.3, pulse 73, respiration 16, blood pressure 157/68, O2 saturation 98% on room air. Earlier, blood pressure was 136/74. HEENT: No eye discharge or redness. Conjunctivae are normal. NECK: No mass. CHEST: Fairly clear. CARDIOVASCULAR: S1 and S2 normal, no murmur. ABDOMEN: Incision has dressing. JESSICA drain in place. LABORATORY DATA: WBC 6.8, hemoglobin 11.4, platelets 332. Chem-7 normal. IMPRESSION AND PLAN: Rectal cancer status post exploratory laparotomy and low anterior resection. C ontinue clear liquid and advance as tolerated. Continue IV fluid. Since patient has been allowed to take p.o., we will add Tylenol and [place] for pain control. We will also reduce IV fluids. Plan of care was discussed with the patient's daughter. Dictated By: DOTTIE FONSECA MD AB/NTS Conf#: [id number] DID#: [id number] CC: ARINA SOLANO MD;*EndCC*
[2018-08-12 02:15] VITALS: BP 131/70; PULSE 71; RESP 19
[2018-08-12 07:35] VITALS: BP 133/71; PULSE 63; RESP 18
[2018-08-12] MEDS: D5W-0.45 NACL + KCL 20 MEQ 1,000 ML IV SCH (10:47)
--- NOTE | 2018-08-12 11:00 | PN ---
Date/Time of Note Date/Time of Note DATE: 08/12/18 TIME: 11:00 Assessment/Plan VTE Prophylaxis Risk score (from Ns)>0 risk: 7 SCD applied (from Nsg): Yes Lines/Catheters IV Catheter Type (from Nrs): Peripheral IV Urinary Cath still in place: No Assessment/Plan Assessment/Plan Rectal cancer status post exploratory laparotomy and low anterior resection. Result Diagram: 08/12/189 08/12/189 Results 24hrs Laboratory Tests Test 08/12/18 04:49 White Blood Count 7.4 Red Blood Count 4.08 L Hemoglobin 11.4 L Hematocrit 34.8 L Mean Corpuscular Volume 85.3 Mean Corpuscular Hemoglobin 27.9 L Mean Corpuscular Hemoglobin Concent 32.8 Red Cell Distribution Width 12.8 Platelet Count 328 Mean Platelet Volume 9.3 Immature Granulocytes % 0.300 Neutrophils % 58.3 Lymphocytes % 27.5 Monocytes % 6.4 Eosinophils % 7.0 Basophils % 0.5 Nucleated Red Blood Cells % 0.0 Immature Granulocytes # 0.020 Neutrophils # 4.3 Lymphocytes # 2.0 Monocytes # 0.5 Eosinophils # 0.5 Basophils # 0.0 Nucleated Red Blood Cells # 0.0 Sodium Level 140 Potassium Level 3.7 Chloride Level 108 Carbon Dioxide Level 26 Anion Gap 6 Blood Urea Nitrogen 8 Creatinine 0.55 Est Glomerular Filtrat Rate mL/min > 60 Glucose Level 123 Calcium Level 9.5 Exam/Review of Systems Exam Vitals Vital Signs Date Temp Pulse Resp B/P (MAP) Pulse Ox O2 O2 Flow FiO2 Time Delivery Rate 08/12/18 97.9 63 18 133/71 97 07:35 (91) 08/11/18 Room Air 14:58 Intake and Output 08/11/18 08/11/18 08/12/18 1515:00 23:00 07:00 IntakeIntake Total 725 ml 1440 ml 720 ml OutputOutput Total 40 ml 30 ml BalanceBalance 725 ml 1400 ml 690 ml Results Results 24hrs Laboratory Tests Test 08/12/18 04:49 White Blood Count 7.4 Red Blood Count 4.08 L Hemoglobin 11.4 L Hematocrit 34.8 L Mean Corpuscular Volume 85.3 Mean Corpuscular Hemoglobin 27.9 L Mean Corpuscular Hemoglobin Concent 32.8 Red Cell Distribution Width 12.8 Platelet Count 328 Mean Platelet Volume 9.3 Immature Granulocytes % 0.300 Neutrophils % 58.3 Lymphocytes % 27.5 Monocytes % 6.4 Eosinophils % 7.0 Basophils % 0.5 Nucleated Red Blood Cells % 0.0 Immature Granulocytes # 0.020 Neutrophils # 4.3 Lymphocytes # 2.0 Monocytes # 0.5 Eosinophils # 0.5 Basophils # 0.0 Nucleated Red Blood Cells # 0.0 Sodium Level 140 Potassium Level 3.7 Chloride Level 108 Carbon Dioxide Level 26 Anion Gap 6 Blood Urea Nitrogen 8 Creatinine 0.55 Est Glomerular Filtrat Rate mL/min > 60 Glucose Level 123 Calcium Level 9.5 Medications Medication Current Medications Ondansetron HCl (Zofran Inj) 4 mg Q6H PRN IV NAUSEA AND/OR VOMITING; Start 08/05/18 at 15:00 Potassium Chloride/Dextrose/ Sod Cl 1,000 ml @ 75 mls/hr [id number] IV Last administered on 08/12/18at 10:47; Admin Dose 75 MLS/HR; Start 08/05/18 at 14:44 Morphine Sulfate (morphine) 2 mg Q4H PRN IV SEVERE PAIN LEVEL 7-10; Start 08/10/18 at 14:00 Acetaminophen (Tylenol Tab) 500 mg Q6H PRN PO MILD PAIN(1-3)OR ELEVATED TEMP; Start 08/11/18 at 16:30 Acetaminophen/ Hydrocodone Bitart ([place] (5/325)) 1 tab Q4H PRN PO MODERATE PAIN LEVEL 4-6; Start 08/11/18 at 16:30 SHENA GARCIA Aug 12, 2018 11:00
[2018-08-12] MEDS ORDERED: HYDROCODONE/APAP (5/325) TAB PO PRN (11:30)
[2018-08-12 14:40] VITALS: BP 116/59; PULSE 72; RESP 18
--- NOTE | 2018-08-12 18:18 | PN ---
DATE: 08/12/2018 Postop day #7 status post laparotomy, rectosigmoid resection for cancer of rectosigmoid area. SUBJECTIVE: No complaint. Has had small amount of bowel movement. Has tolerated clear liquid. No nausea, no vomiting, no fever. Has been out of bed, walking around, urinating with no difficulty. F oley has been discontinued. NG tube has been discontinued. OBJECTIVE: GENERAL: Awake, alert, oriented x3. VITAL SIGNS: Temperature maximum today 99, heart rate 72, respiration 18, blood pressure 116/59, sat uration 99% on room air. HEART: Regular. LUNGS: Clear. ABDOMEN: Soft. Wound clean. EXTREMITIES: Legs: No calf tenderness. ASSESSMENT: A 62-year-old female postop day #7 status post low anterior resection and end-to-end king stomosis for the cancer of the rectosigmoid area. The patient is stable. PLAN: We are already cautious for advancing diet, but gradually we will advance it today on clear li quid. We will keep her on clear liquid maybe a couple of more days and then advance to full liquid a nd soft diet. Expecting to be discharging the patient by the end of the week this week or by the beg inning of the next week. Dictated By: AJS EDGAR MD PS/NTS Conf#: [id number] DID#: [id number] CC: ARINA SOLANO MD;*EndCC*
[2018-08-12 19:40] VITALS: BP 98/55; PULSE 65; RESP 20
[2018-08-13] MEDS: D5W-0.45 NACL + KCL 20 MEQ 1,000 ML IV SCH (00:41)
[2018-08-13 02:00] VITALS: BP 103/59; PULSE 60; RESP 20
[2018-08-13 07:13] VITALS: BP 124/67; PULSE 64; RESP 18
[2018-08-13] MEDS ORDERED: traMADol 50 MG TAB PO PRN (10:30)
--- NOTE | 2018-08-13 13:01 | PN ---
DATE: 08/13/2018 Status post laparotomy and low anterior resection of the cancer of colon postop day #8. SUBJECTIVE: No complaint. Has had a couple of more bowel movements, very loose. No fever, no nause a, no vomiting. Tolerated a liquid diet. OBJECTIVE: VITAL SIGNS: Temperature of 98.5, heart rate 64, respiration 18, blood pressure 124/67, saturation 9 6% on room air. HEART: Regular. LUNGS: Clear. ABDOMEN: Soft. Dressing was removed. Wound is clean. EXTREMITIES: Legs have no calf tenderness. ASSESSMENT AND PLAN: The patient is 62 years old, status post laparotomy, low anterior resection of cancer of rectosigmoid. The patient has been doing fine. No complications so far postoperatively. Considering that the stapled anastomosis, there was a little bit of doubt about the integrity of that anastomosis, so I have been trying to keep the patient more than usual n.p.o. or on clear liquids; t herefore even though the patient had bowel movement and continued to clear liquids, tonight we will a dvance the diet to full liquid and tomorrow to soft diet and if no problem, the patient can be discha rged on Thursday or Thursday. Dictated By: JAS EDGAR MD PS/NTS Conf#: [id number] DID#: [id number] CC: ARINA SOLANO MD; DOTTIE FONSECA MD;*EndCC*
--- NOTE | 2018-08-13 13:44 | PN ---
Date/Time of Note Date/Time of Note DATE: 08/13/18 TIME: 13:40 Assessment/Plan VTE Prophylaxis Risk score (from Nsg)>0 risk: 9 SCD applied (from Nsg): Yes Lines/Catheters IV Catheter Type (from Nrsg): Peripheral IV Urinary Cath still in place: No Assessment/Plan Assessment/Plan Assessment/Plan Rectal cancer status post exploratory laparotomy and low anterior resection. Result Diagram: 08/12/1844808/12/18448 Subjective 24 Hr Interval Summary Constitutional: improved Exam/Review of Systems Exam Vitals Vital Signs Date Temp Pulse Resp B/P (MAP) Pulse Ox O2 O2 Flow FiO2 Time Delivery Rate 08/13/18 98.5 64 18 124/67 96 07:13 (86) 08/11/18 Room Air 14:58 Intake and Output 08/12/18 08/12/18 08/13/18 1515:00 23:00 07:00 IntakeIntake Total 1000 ml 1020 ml 730 ml OutputOutput Total 425 ml 20 ml BalanceBalance 1000 ml 595 ml 710 ml Medications Medication Current Medications Ondansetron HCl (Zofran Inj) 4 mg Q6H PRN IV NAUSEA AND/OR VOMITING; Start 08/05/18 at 15:00 Morphine Sulfate (morphine) 2 mg Q4H PRN IV SEVERE PAIN LEVEL 7-10; Start 08/10/18 at 14:00 Acetaminophen (Tylenol Tab) 500 mg Q6H PRN PO MILD PAIN(1-3)OR ELEVATED TEMP; Start 08/11/18 at 16:30 Acetaminophen/ Hydrocodone Bitart ([place] (5/325)) 1 tab Q6H PRN PO MODERATE PAIN LEVEL 4-6; Start 08/12/18 at 11:30 SHENA GARCIA Aug 13, 2018 13:44
[2018-08-13 14:16] VITALS: BP 138/63; PULSE 73; RESP 18
[2018-08-13 19:40] VITALS: BP 108/57; PULSE 69; RESP 20
[2018-08-14 02:40] VITALS: BP 113/54; PULSE 68; RESP 20
[2018-08-14 07:48] VITALS: BP 96/54; PULSE 66; RESP 18
--- NOTE | 2018-08-14 13:36 | PN ---
Date/Time of Note Date/Time of Note DATE: 08/14/18 TIME: 13:35 Assessment/Plan VTE Prophylaxis Risk score (from Nsg)>0 risk: 6 SCD applied (from Nsg): Yes Lines/Catheters IV Catheter Type (from Nrsg): Peripheral IV Urinary Cath still in place: No Assessment/Plan Assessment/Plan Rectal cancer status post exploratory laparotomy and low anterior resection. Result Diagram: 08/12/1844808/12/18448 Exam/Review of Systems Exam Vitals Vital Signs Date Temp Pulse Resp B/P (MAP) Pulse Ox O2 O2 Flow FiO2 Time Delivery Rate 08/14/18 98.4 66 18 96/54 (68) 95 07:48 08/14/18 Room Air 02:40 Intake and Output 08/13/18 08/13/18 08/14/18 1515:00 23:00 07:00 IntakeIntake Total 850 ml 400 ml 400 ml OutputOutput Total 40 ml 24 ml BalanceBalance 850 ml 360 ml 376 ml Constitutional: alert Psych: nl mood/affect Medications Medication Current Medications Ondansetron HCl (Zofran Inj) 4 mg Q6H PRN IV NAUSEA AND/OR VOMITING; Start 08/05/18 at 15:00 Morphine Sulfate (morphine) 2 mg Q4H PRN IV SEVERE PAIN LEVEL 7-10; Start 08/10/18 at 14:00 Acetaminophen (Tylenol Tab) 500 mg Q6H PRN PO MILD PAIN(1-3)OR ELEVATED TEMP; Start 08/11/18 at 16:30 Acetaminophen/ Hydrocodone Bitart ([place] (5/325)) 1 tab Q6H PRN PO MODERATE PAIN LEVEL 4-6 Last administered on 08/14/18at 01:46; Admin Dose 1 TAB; Start 08/12/18 at 11:30 SHENA GARCIA Aug 14, 2018 13:36
[2018-08-14 14:03] VITALS: BP 103/52; PULSE 66; RESP 16
--- NOTE | 2018-08-14 17:16 | PN ---
DATE: 08/14/2018 Postop day #9, status post laparotomy and low anterior resection of cancer of the rectosigmoid SUBJECTIVE: No complaint. Has had bowel movement. Still is clear liquid. No nausea, no vomiting, no fever. Has been walking around. Urination okay. OBJECTIVE: GENERAL: Alert, awake, oriented. VITAL SIGNS: Temperature maximum 98.5, heart rate 68, respirations 20, blood pressure 113/54, satura tion 96% on room air. HEART: Regular. LUNGS: Clear. ABDOMEN: Soft. Austin-Manzano drain in place. It is still draining more than 25 Ml. In the past 24 hours, it has been 60 mL of serous fluid. LEGS: No calf tenderness. PLAN: We will advance the diet to soft diet today. We will see her tomorrow morning. I anticipate that most probably patient can be discharged to home today if she has at least one solid or soft or f ormed bowel movement by tomorrow. Dictated By: JAS EDGAR MD PS/NTS Conf#: [id number] DID#: [id number] CC: ARINA SOLANO MD;*EndCC*
[2018-08-14 20:03] VITALS: BP 123/66; PULSE 75; RESP 18
[2018-08-15 02:10] VITALS: BP 115/59; PULSE 60; RESP 17
[2018-08-15 08:07] VITALS: BP 116/68; PULSE 67; RESP 16
--- NOTE | 2018-08-15 11:14 | PN ---
DATE: 08/15/2018 SUBJECTIVE: The patient denies any chest pain, shortness of breath. Postoperative pain is well cont rolled. The patient is tolerating soft diet. No reported vomiting. No reported temperature. No bl eeding from any site. The patient did have 1 bowel movement last night. OBJECTIVE: GENERAL: Awake, alert. VITAL SIGNS: Temperature 98.7, pulse 67, respirations 16, blood pressure 116/68, O2 saturation 95% o n room air. HEENT: No eye discharge or redness. Conjunctivae normal. Oropharynx clear. NECK: No mass. CHEST: Fairly clear. CARDIOVASCULAR: S1, S2 normal. Regular rhythm. ABDOMEN: Soft, nondistended. EXTREMITIES: No edema. NEUROLOGIC: The patient is awake, alert. IMPRESSION AND PLAN: Rectal cancer status post surgery. The patient is tolerating p.o. diet and had a bowel movement last night. We will wait for final clearance from Dr. Rodas about possible discha rge today. Dictated By: DOTTIE VELÁSQUEZ/SKY Conf#: [id number] DID#: [id number]
--- NOTE | 2018-08-15 11:27 | PDOCDIS ---
Discharge Instructions CONDITION Nisob1Tj Patient Condition: [id number] Good HOME CARE INSTRUCTIONS: [id number] Diet Instructions: Xglyj2e Regular ACTIVITY: Ulzgs4Xd Activity Restrictions: [id number] Slowly Increase Activity FOLLOW UP/APPOINTMENTS Follow-up Plan Dr. Castaneda next week PMD in 1-2 weeks DOTTIE FONSECA MD Aug 15, 2018 11:27
[2018-08-15] MEDS ORDERED: Acetaminophen PO (11:28)
--- NOTE | 2018-08-15 12:44 | PN ---
DATE: 08/15/2018 Postoperative day #10 status post laparotomy, low anterior resection of the cancer of the colorectum system at the rectosigmoid area. SUBJECTIVE: No complaint. No nausea, no vomiting, no fever. Has tolerated a soft diet. Has had reyes wel movements more formed than before. No diarrhea. OBJECTIVE: HEART: Regular. LUNGS: Clear. ABDOMEN: Soft. Dressing was changed. Wound was clean, stable but cannot be removed yet. INPUT AND OUTPUT: Austin-Manzano drain is still in place. It has been draining about 40 mL of serous fluid in 24 hours. PLAN: Therefore, we are going to send the patient home with Austin-Manzano and the patient was given instruction how to empty that every day and to measure the drainage and write it down on a piece of p aper and when she goes to Dr. Castaneda' office for followup to take the paper with her. This was given as instruction to the patient and the patient's son, the patient's [id number]. All of their que stions were answered. Therefore, the patient can be discharged home today, to be followed by Dr. Ramirez is in the office. The patient will call Thursday to Dr. Castaneda' office and make an appointment for ana ascencio. Medical service will also see the patient and discharge the patient today if everything is oka y with them. Dictated By: JAS EDGAR MD PS/NTS Conf#: [id number] DID#: [id number] CC: DOTTIE FONSECA MD; ARINA CASTANEDA MD;*End*
== END 2018-08-15 13:25 | disposition home or self-care (01) | DRG 334 ==
LOC: REC 08:42 → EDSTATUS 10:30 → MS1 16:48
PROVIDERS: ADMIT Surgery Surgical Oncology; ATTEND Surgery Surgical Oncology
PROC: 0DJD8ZZ Inspection of Lower Intestinal Tract, Via Natural or Artificial Opening Endoscopic (ICD-10-PCS; 2018-08-05)
PROC: 0DTP0ZZ Resection of Rectum, Open Approach (ICD-10-PCS; principal; 2018-08-05 10:30)
DX: C20 Malignant neoplasm of rectum (principal); E78.5 Hyperlipidemia, unspecified; R73.03 Prediabetes
CPT/HCPCS: 74018; 80048; 83735; 84100; 85025; 85610; 85730; 87086; 88300; J0131; J0295; J1170; J1885; J2001; J2250; J2270; J2370; J2405; J2543; J2710; J2765; J3010; J3480